=== PATIENT | female | born 1995 | race Caucasian/White ===

== ENCOUNTER 2017-06-19 22:04 | Emergency (ER) | payer OTHER ==
[2017-06-19 22:26] VITALS: RESP 16; TEMP 97.9
--- NOTE | 2017-06-19 23:06 | EDPHY ---
H & P Stated Complaint: Nausea, vomiting, abd pain. HPI/ROS: HPI CHIEF COMPLAINT: Nausea, vomiting, diarrhea HISTORY OF PRESENT ILLNESS: This patient very pleasant 21-year-old female otherwise healthy no significant medical history she is a [employer] student, she presents emergency room nausea vomiting diarrhea. Around 9:50 p.m. she started having vomiting. Nonbilious nonbloody. Food products only. Then developed diarrhea 2 episodes. She had 7 episodes of nausea vomiting. Denies chest pain or shortness of breath denies significant abdominal pain denies fever. Past Medical History: No significant medical history Past Surgical History: No significant surgical history Social History: Denies daily use drugs alcohol tobacco products, [employer] student Family History: Noncontributory ROS REVIEW OF SYSTEMS: A comprehensive 10 point review of systems is otherwise negative aside from elements mentioned in the history of present illness. Exam Constitutional appears well nontoxic, triage nursing summary reviewed, vital signs reviewed, awake/alert. Eyes normal conjunctivae and sclera, EOMI, PERRLA. HENT normal inspection, atraumatic, moist mucus membranes, no epistaxis, neck supple/ no meningismus, no raccoon eyes. Respiratory clear to auscultation bilaterally, normal breath sounds, no respiratory distress, no wheezing. Cardiovascular rate normal, regular rhythm, no murmur, no edema, distal pulses normal. Gastrointestinal soft, non-tender, no rebound, no guarding, normal bowel sounds, no distension, no pulsatile mass. Genitourinary no CVA tenderness. Musculoskeletal no midline vertebral tenderness, full range of motion, no calf swelling, no tenderness of extremities, no meningismus, good pulses, neurovascularly intact. Skin pink, warm, & dry, no rash, skin atraumatic. Neurologic awake, alert and oriented x 3, AAOx3, moves all 4 extremities equally, motor intact, sensory intact, CN II-XII intact, normal cerebellar, normal vision, normal speech. Psychiatric normal mood/affect. Heme/Lymph/Immune no lymphadenopathy. Differential diagnosis includes but is not limited to and in no particular order : Dehydration, electrolyte disturbance, acute diarrheal illness, viral syndrome Medical Decision Making: Plan for this patient IV established with IV fluid bolus, check electrolytes and blood work. Re-evaluate after IV Zofran. Re-evaluation: 1201: Re-evaluation at this time re-examination abdomen is soft nontender no guarding or peritoneal signs. She is feeling better. She received 2 L normal saline IV fluid bolus. Blood work has been reviewed she does have leukocytosis most likely consistent with nausea vomiting causing leukocytosis. She does not have any significant abdominal pain. Doubt acute appendicitis. Otherwise her electrolytes are good she has not had any diarrhea or vomiting here. She would like to go home. Plan will be for p.o. challenge. She p.o. challenge well she can go home. She does understand return precautions develops abdominal pain fever vomiting again she needs return emergency room. Source: Patient - Personal History Current Tetanus/Diphtheria Vaccine: Unsure Current Tetanus Diphtheria and Acellular Pertussis (TDAP): Unsure - Medical/Surgical History Hx Asthma: No Hx Chronic Respiratory Disease: No Hx Diabetes: No Hx Cardiac Disease: No Hx Renal Disease: No Hx Cirrhosis: No Hx Alcoholism: No Hx HIV/AIDS: No Hx Splenectomy or Spleen Trauma: No Other PMH: None stated. - Social History Smoking Status: Never smoked Constitutional: Initial Vital Signs Temperature (C) 36.6 C 06/19/17 22:22 Heart Rate 98 06/19/17 22:22 Respiratory Rate 16 06/19/17 22:22 Blood Pressure 132/87 H 06/19/17 22:22 O2 Sat (%) 94 06/19/17 22:22 O2 Delivery Mode Room Air Allergies/Adverse Reactions: No Known Allergies Allergy (Unverified 06/19/17 22:26) Home Medications: Medication Instructions Recorded NK [No Known Home Meds] 06/19/17 Medical Decision Making - Data Points Laboratory Results: Laboratory Results 06/19/17 23:29 06/19/17 23:29 06/19/17 06/19/17 06/19/17 23:29 23:29 23:29 WBC 18.42 10^3/uL H 10^3/uL (3.80-9.50) RBC 4.80 10^6/uL 10^6/uL (4.18-5.33) Hgb 13.3 g/dL g/dL (12.6-16.3) Hct 39.9 % % (38.0-47.0) MCV 83.1 fL fL (81.5-99.8) MCH 27.7 pg L pg (27.9-34.1) MCHC 33.3 g/dL g/dL (32.4-36.7) RDW 13.4 % % (11.5-15.2) Plt Count 316 10^3/uL 10^3/uL (150-400) MPV 9.8 fL fL (8.7-11.7) Neut % (Auto) 83.0 % H % (39.3-74.2) Lymph % (Auto) 8.3 % L % (15.0-45.0) [place] % (Auto) 7.1 % % (4.5-13.0) Eos % (Auto) 1.0 % % (0.6-7.6) Baso % (Auto) 0.2 % L % (0.3-1.7) Nucleat RBC Rel Count 0.0 % % (0.0-0.2) Absolute Neuts (auto) 15.30 10^3/uL H 10^3/uL (1.70-6.50) Absolute Lymphs (auto) 1.52 10^3/uL 10^3/uL (1.00-3.00) Absolute Monos (auto) 1.31 10^3/uL H 10^3/uL (0.30-0.80) Absolute Eos (auto) 0.18 10^3/uL 10^3/uL (0.03-0.40) Absolute Basos (auto) 0.04 10^3/uL 10^3/uL (0.02-0.10) Absolute Nucleated RBC 0.00 10^3/uL 10^3/uL (0-0.01) Immature Gran % 0.4 % % (0.0-1.1) Immature Gran # 0.07 10^3/uL 10^3/uL (0.00-0.10) Sodium 137 mEq/L mEq/L (134-144) Potassium 3.7 mEq/L mEq/L (3.5-5.2) Chloride 101 mEq/L mEq/L (97-110) Carbon Dioxide 23 mEq/l mEq/l (22-31) Anion Gap 13 mEq/L mEq/L (8-16) BUN 9 mg/dL mg/dL (7-23) Creatinine 0.7 mg/dL mg/dL (0.6-1.0) Estimated GFR > 60 Glucose 122 mg/dL H mg/dL (70-100) Calcium 10.0 mg/dL mg/dL (8.5-10.4) Total Bilirubin 0.4 mg/dL mg/dL (0.1-1.4) Conjugated Bilirubin 0.2 mg/dL mg/dL (0.0-0.5) Unconjugated Bilirubin 0.2 mg/dL mg/dL (0.0-1.1) AST 25 IU/L IU/L (14-46) ALT 30 IU/L IU/L (9-52) Alkaline Phosphatase 89 IU/L IU/L (38-126) Total Protein 7.8 g/dL g/dL (6.3-8.2) Albumin 4.3 g/dL g/dL (3.5-5.0) Lipase 84 IU/L IU/L (23-300) Beta HCG, Qual NEGATIVE Medications Given: Discontinued Medications Sodium Chloride (Ns) 2,000 mls @ 0 mls/hr IV EDNOW ONE; Wide Open PRN Reason: Protocol Stop: 06/19/17 23:10 Last Admin: 06/19/17 23:38 Dose: 2,000 mls Ondansetron HCl (Zofran) 4 mg IVP EDNOW ONE Stop: 06/19/17 23:10 Last Admin: 06/19/17 23:38 Dose: 4 mg Departure - Departure Disposition: Home, Routine, Self-Care Clinical Impression: Nausea and vomiting Qualifiers: Vomiting type: unspecified Vomiting Intractability: non-intractable Qualified Code(s): R11.2 - Nausea with vomiting, unspecified Condition: Good Instructions: Acute Nausea and Vomiting (ED) Additional Instructions: 1. Small hydrated. 2. [place] diet for the next 24-48 hours. 3. Return if worsening abdominal pain fever vomiting. Referrals: NONE *PRIMARY CARE P,. [Primary Care Provider] - As per Instructions
[2017-06-19] MEDS ORDERED: NS 2,000 ML IV ONE (23:09)
[2017-06-19] MEDS ORDERED: ONDANSETRON 4 MG/2 ML VIAL IVP ONE (23:09)
[2017-06-19 23:35] LABS: % IMMATURE GRANULYOCYTES 0.4 % (0.0-1.1); ABSOLUTE IMMATURE GRANULOCYTES 0.07 10^3/uL (0.00-0.10); ADD DIFF? NO; ADD MORPH? NO; ADD SCAN? NO; ATYPICAL LYMPHOCYTE FLAG 10 (0-99); FRAGMENT RBC FLAG 0 (0-99); HEMATOCRIT 39.9 % (38.0-47.0); HEMOGLOBIN 13.3 g/dL (12.6-16.3); LEFT SHIFT FLG 0 (0-99); LIPEMIA HEMOLYSIS FLAG 80 (0-99); MEAN CELL HEMOGLOBIN 27.7 pg (27.9-34.1); MEAN CELL HEMOGLOBIN CONCENTR. 33.3 g/dL (32.4-36.7); MEAN CELL VOLUME 83.1 fL (81.5-99.8); MEAN PLATELET VOLUME 9.8 fL (8.7-11.7); PLATELET CLUMPS FLAG 20 (0-99); PLATELET COUNT 316 10^3/uL (150-400); RED CELL DISTRIBUTION WIDTH 13.4 % (11.5-15.2)
[2017-06-19 23:47] LABS: ALANINE AMINOTRANSFERASE 30 IU/L (9-52); ALBUMIN 4.3 g/dL (3.5-5.0); ALKALINE PHOSPHATASE 89 IU/L (38-126); ANION GAP 13 mEq/L (8-16); ASPARTATE AMINOTRANSFERASE 25 IU/L (14-46); BILIRUBIN,TOTAL 0.4 mg/dL (0.1-1.4); BILIRUBIN-CONJUGATED 0.2 mg/dL (0.0-0.5); BILIRUBIN-UNCONJUGATED 0.2 mg/dL (0.0-1.1); CARBON DIOXIDE 23 mEq/l (22-31); CHLORIDE 101 mEq/L (97-110); CREATININE 0.7 mg/dL (0.6-1.0); GLOMERULAR FILTRATION RATE > 60; GLUCOSE 122 mg/dL (70-100); POTASSIUM 3.7 mEq/L (3.5-5.2); SODIUM 137 mEq/L (134-144); TOTAL PROTEIN 7.8 g/dL (6.3-8.2)
[2017-06-20 00:15] VITALS: BP 132/76; PULSE 66; O2SAT 99
[2017-06-20 00:39] LABS: COLOR YELLOW; LEUKOCYTE ESTERASE,URINE NEGATIVE (NEGATIVE); NITRITE,URINE NEGATIVE (NEGATIVE)
[2017-06-20 01:09] LABS: MUCUS 2+ /lpf (NONE-1+)
== END 2017-06-20 01:08 | disposition home or self-care (01) ==
DX: R11.2 Nausea with vomiting, unspecified (principal); E86.9 Volume depletion, unspecified
CPT/HCPCS: 96374; J2405

== ENCOUNTER 2018-01-03 12:38 | Emergency (ER) | payer OTHER ==
--- NOTE | 2018-01-03 13:53 | EDPHY ---
H & P Stated Complaint: multiple:R arm pain episode, then felt dizzy and faint, recent cold s/s Time Seen by Provider: 01/03/18 13:52 HPI/ROS: HPI: This is a 22-year-old female who presents with Chief Complaint: multiple:R arm pain episode, then felt dizzy and faint, recent cold s/s Location: Right bicep Quality: Injury Duration: 5 days ago Signs and Symptoms: No bleeding, no radiation, no numbness, no weakness, no tingling, no incontinence, no decreased range of motion, no swelling, + pain, no fever Timing: Acute Severity: Mild Context: Patient is a local student presents with multiple complaints. The 2 main complaints are 1. Patient was skiing approximately 5 days ago and fell while holding the pole and since that time she has experienced some achy nonradiating pain in her right bicep. Patient reports that pain worsens when she pushes upper uses her right arm. Patient is right-hand dominant. Denies any bruising/decreased range of motion/weakness/paresthesias. Denies LOC/head injury/neck pain/dizziness/nausea/vomiting/amnesia. 2. For the last almost 2 weeks patient has had sinus congestion, green nasal drainage, dry nonproductive cough and fatigue. She has been taking DayQuil and Advil without any relief. She reports that she has low-grade fevers. She was sitting in class today and started to feel faint and dizzy. No history of lung disease or foreign travel since September of 2017. Modifying Factors: See above Comment: ROS: see HPI Constitutional: No fever, no chills, no weight loss Eyes: No blurred vision Respiratory: No shortness of breath, no cough Cardiovascular: No chest pain Gastrointestinal: No nausea, no vomiting no diarrhea Genitourinary: No dysuria Extremities: No myalgias Neurologic: No weakness, no numbness Skin: No rashes Hematologic: No bruising, no bleeding MEDICAL/SURGICAL/SOCIAL HISTORY: Medical history: Generally healthy. Does not take any regular medications. Surgical history: Denies Social history: Student, originally from [facility] CONSTITUTIONAL: awake and alert, no obvious distress HEENT: Atraumatic and normocephalic, PERRL, EOMI. Suborbital darkening noted. Tympanic membranes clear. Nares show green nasal discharge with sinus tenderness in the frontal maxillary areas. Oropharynx clear, no exudate and moist pink mucosa. Airway patent. No lymphadenopathy. No meningismus. Cardiovascular: Normal S1/S2, mild tachycardia, regular rhythm, without murmur rub or gallop. PULMONARY/CHEST: Symmetrical and nontender. Clear to auscultation bilaterally. Good air movement. No accessory muscle usage. ABDOMEN: Soft, nondistended, nontender, no rebound, no guarding, no peritoneal signs, no masses or organomegaly. No CVAT. EXTREMITIES: 2/2 pulses, strength 5/5, right SHOULDER: Arc test abduction to 180, abduction to 45, horizontal flexion 130, horizontal extension to 45, deltoid strength 5/5. No pain with Neer test/Engle test (impingement). No Tenderness to palpation over AC joint. no deformities, no clubbing, no cyanosis or edema. Biceps strength 5/5. NEUROLOGICAL: no focal neuro deficits. GCS 15. SKIN: Warm and dry, no erythema. no rash. Good capillary refill. Source: Patient Exam Limitations: No limitations - Personal History LMP (Females 10-55): 1-7 Days Ago Current Tetanus/Diphtheria Vaccine: No Current Tetanus Diphtheria and Acellular Pertussis (TDAP): No - Medical/Surgical History Hx Asthma: No Hx Chronic Respiratory Disease: No Hx Diabetes: No Hx Cardiac Disease: No Hx Renal Disease: No Hx Cirrhosis: No Hx Alcoholism: No Hx HIV/AIDS: No Hx Splenectomy or Spleen Trauma: No Other PMH: denies - Social History Smoking Status: Never smoked Constitutional: Initial Vital Signs Temperature (C) 37.3 C 01/03/18 12:42 Heart Rate 101 H 01/03/18 12:42 Respiratory Rate 20 01/03/18 12:42 Blood Pressure 129/79 H 01/03/18 12:42 O2 Sat (%) 96 01/03/18 12:42 O2 Delivery Mode Room Air Allergies/Adverse Reactions: No Known Allergies Allergy (Unverified 06/19/17 22:26) Home Medications: Medication Instructions Recorded Azithromycin [Zithromax] 250 mg PO DAILY #6 tab 01/03/18 Fluticasone Furoate [Flonase 9.9 ml NS DAILY #1 spray.susp 01/03/18 Sensimist] Medical Decision Making - Diagnostics Imaging Results: Imaging Impressions Shoulder X-Ray 01/03/18 12:48 Impression: Nothing acute identified. ED Course/Re-evaluation: Not a Tamiflu candidate so influenza test not ordered. Patient offered chest x-ray but politely declined. lung exam is negative and she has no hypoxia/wheezing/respiratory distress Symptoms greater than 10 days; start antibiotics at this point X-ray my read shows no fracture, dislocation No signs of neurovascular compromise/tenting of skin/compartment syndrome/ extremities and joints examined above and below area of concern and are neurovascularly intact. This patient was seen under the supervision of my secondary supervising physician. I evaluated care for this patient independently. Differential Diagnosis: Adult fever including but not limited to viral syndromes including influenza, bronchitis, viral syndrome, pneumonia and sepsis. Departure - Departure Disposition: Home, Routine, Self-Care Clinical Impression: Bronchitis Sinusitis nasal Qualifiers: Sinusitis location: maxillary Chronicity: acute Recurrence: non-recurrent Qualified Code(s): J01.00 - Acute maxillary sinusitis, unspecified Strain of right biceps muscle Qualifiers: Encounter type: initial encounter Qualified Code(s): S46.211A - Strain of muscle, fascia and tendon of other parts of biceps, right arm, initial encounter Condition: Good Instructions: Sinusitis (ED), Acute Bronchitis (ED), Muscle Strain (ED), R.I.C.E. Treatment (ED) Additional Instructions: Take Azithromycin as directed until complete. Take Tessalon Perles as needed for cough. Take Sudafed 1 tablet every 6 hr as needed for nasal congestion. Use Flonase nasal spray daily until sinus congestion resolved. Consume a minimum of 8-10 glasses of water or electrolyte fluid replacement drinks that include Gatorade, Powerade, Pedialyte. Rest as much as possible until you are feeling better. Wash your hands as much as possible and limited air exposure to other people until you are feeling better. Limit the use of the right upper extremity until you are pain-free. Use Tylenol and/or ibuprofen as needed for pain. Return to the ER immediately if you experience new or worsening pain, discoloration, numbness, tingling, or any other symptoms that concern you. Referrals: [facility] [Clinic] - As per Instructions Stand Alone Forms: School Excuse Prescriptions: Azithromycin [Zithromax] 250 mg PO DAILY #6 tab Fluticasone Furoate [Flonase Sensimist] 9.9 ml NS DAILY #1 spray.susp
[2018-01-03 14:08] VITALS: BP 132/69; PULSE 79; RESP 18; TEMP 98.4; O2SAT 98
== END 2018-01-03 14:09 | disposition home or self-care (01) ==
DX: S46.211A Strain of muscle, fascia and tendon of other parts of biceps, right arm, initial encounter (principal); J20.9 Acute bronchitis, unspecified; J01.00 Acute maxillary sinusitis, unspecified; V00.321A Fall from snow-skis, initial encounter; Y99.8 Other external cause status; Y93.23 Activity, snow (alpine) (downhill) skiing, snowboarding, sledding, tobogganing and snow tubing